=== PATIENT | male | born 2000 | race Caucasian/White ===

== ENCOUNTER 2020-08-08 12:20 | Emergency (ER) | payer OTHER ==
[2020-08-08] MEDS ORDERED: Ibuprofen 200 MG TAB ONE (14:06)
[2020-08-08] MEDS ORDERED: Cyclobenzaprine 10 MG TAB ONE (14:07)
[2020-08-09] MEDS ORDERED: Acetaminophen 500 MG TAB ONE (04:37)
[2020-08-09] MEDS ORDERED: Ibuprofen 200 MG TAB ONE (04:37)
== END 2020-08-08 14:21 | disposition home or self-care (01) ==
LOC: CSHERS 12:20
DX: M54.6 Pain in thoracic spine (principal); J45.909 Unspecified asthma, uncomplicated
CPT/HCPCS: 99283

== ENCOUNTER 2020-08-15 01:16 | Emergency (ER) | payer OTHER | END 2020-08-15 01:43 | disposition home or self-care (01) | LOC: CSHERS 01:16 | DX: M54.5 Low back pain (principal); R10.13 Epigastric pain; J45.909 Unspecified asthma, uncomplicated; Z79.51 Long term (current) use of inhaled steroids | CPT/HCPCS: 93005 ==

== ENCOUNTER 2020-08-18 15:04 | Emergency (ER) | payer OTHER ==
[2020-08-18] MEDS ORDERED: Ondansetron ODT 4 MG TAB ONE (17:33)
[2020-08-18] MEDS ORDERED: Dicyclomine 20 MG TAB ONE (17:35)
== END 2020-08-18 18:31 | disposition home or self-care (01) ==
LOC: CSHERS 15:04
DX: K29.70 Gastritis, unspecified, without bleeding (principal); S20.212A Contusion of left front wall of thorax, initial encounter; M94.0 Chondrocostal junction syndrome [Tietze]; J45.909 Unspecified asthma, uncomplicated; Z79.899 Other long term (current) drug therapy
CPT/HCPCS: 93005; Q0162

== ENCOUNTER 2020-08-20 15:11 | Emergency (ER) | payer OTHER ==
[2020-08-20] MEDS ORDERED: Lorazepam 2 MG/ML VIAL ONE (16:14)
[2020-08-20 16:17] LABS: #Basophils 0.1 10x3/uL (0.0-0.2); #Eosinphils 0.7 10x3/uL (0.0-0.5); #Monocytes 0.6 10x3/uL (0.0-1.1); #Neutrophils 5.6 10x3/uL (1.5-8.4); %Basophils 0.6 % (0.0-2.0); %Lymphocytes 21.2 % (18.0-47.0); %Monocytes 7.1 % (0.0-10.0); %Neutrophils 62.9 % (40.0-75.0); Mean Corpuscular HGB CONC 34.1 g/dL (32.0-36.0); Mean Corpuscular Hemoglobin 30.6 pg (27.0-33.0); Mean Corpuscular Volume 89.6 fl (81.2-95.1); Mean Platelet Volume 10.2 fl (7.4-10.4); Platelet Count 312 10x3/uL (150-450); RBC Distribution Width 11.9 % (11.5-14.5); Red Blood Cell (RBC) Count 5.56 10x6/uL (4.32-5.72); White Blood Cell (WBC) Count 8.9 10x3/uL (3.5-10.5)
[2020-08-20 17:53] LABS: ALT (SGPT) 32 U/L (8-55); AST (SGOT) 23 U/L (5-34); Albumin 4.4 g/dL (3.5-5.0); Alkaline Phosphatase 122 U/L (50-130); Anion Gap 16 mmol/L (10-20); BUN (Urea Nitrogen) 14 mg/dL (8.9-20.6); Bilirubin, Total 1.1 mg/dL (0.2-1.2); Calc. Creatinine Clearance 0 mL/min (70-130); Calcium 9.7 mg/dL (7.8-10.44); Carbon Dioxide 22 mmol/L (22-29); Chloride 102 mmol/L (98-107); Glucose 87 mg/dL (70-105); Potassium 4.2 mmol/L (3.5-5.1); Protein, Total 7.4 g/dL (6.0-8.3); Sodium 136 mmol/L (136-145)
== END 2020-08-20 18:44 | disposition home or self-care (01) ==
LOC: CSHERS 15:11
DX: F41.9 Anxiety disorder, unspecified (principal); R07.89 Other chest pain; J45.909 Unspecified asthma, uncomplicated
CPT/HCPCS: 71045; 80053; 84484; 85025; 93005; 96374; J2060

== ENCOUNTER 2021-04-26 03:54 | Emergency (ER) | payer OTHER ==
[2021-04-26] MEDS ORDERED: Dexamethasone 10 MG/ML VIAL ONE (04:31)
== END 2021-04-26 04:33 | disposition home or self-care (01) ==
LOC: CSHERS 03:54
DX: J45.901 Unspecified asthma with (acute) exacerbation (principal); Z79.899 Other long term (current) drug therapy
CPT/HCPCS: J1100

== ENCOUNTER 2021-04-26 11:11 | Emergency (ER) | payer OTHER ==
[2021-04-26] MEDS ORDERED: Lorazepam 1 MG TAB ONE (12:09)
[2021-04-26 23:08] LABS: SARS-CoV-2 PCR by NAA Not Detected (NotDetected)
== END 2021-04-26 13:40 | disposition home or self-care (01) ==
LOC: CSHERS 11:11
DX: J45.901 Unspecified asthma with (acute) exacerbation (principal); F41.9 Anxiety disorder, unspecified; Z20.822 Contact with and (suspected) exposure to COVID-19; Z79.899 Other long term (current) drug therapy
CPT/HCPCS: 71045; 87804; 93005; 93010; 99284; J1100; U0003; U0005

== ENCOUNTER 2021-10-03 11:27 | Emergency (ER) | payer OTHER | END 2021-10-03 12:47 | disposition home or self-care (01) | LOC: CSHERS 11:27 | DX: M62.830 Muscle spasm of back (principal); J45.909 Unspecified asthma, uncomplicated; Z79.51 Long term (current) use of inhaled steroids; X50.0XXA Overexertion from strenuous movement or load, initial encounter | CPT/HCPCS: 99283 ==

== ENCOUNTER 2021-10-05 10:53 | Emergency (ER) | payer OTHER | END 2021-10-05 14:55 | disposition home or self-care (01) | LOC: CSHERS 10:53 | DX: S39.012A Strain of muscle, fascia and tendon of lower back, initial encounter (principal); X50.9XXA Other and unspecified overexertion or strenuous movements or postures, initial encounter | CPT/HCPCS: 99283 ==

== ENCOUNTER 2021-12-28 15:19 | Emergency (ER) | payer OTHER | END 2021-12-28 16:15 | disposition home or self-care (01) | LOC: CSHERS 15:19 | DX: J45.901 Unspecified asthma with (acute) exacerbation (principal) | CPT/HCPCS: 99284 ==

== ENCOUNTER 2021-12-30 07:53 | Emergency (ER) | payer OTHER ==
[2021-12-30] MEDS ORDERED: Benzonatate 100 MG CAP ONE (08:49)
== END 2021-12-30 09:30 | disposition home or self-care (01) ==
LOC: CSHERS 07:53
DX: J01.90 Acute sinusitis, unspecified (principal); B96.89 Other specified bacterial agents as the cause of diseases classified elsewhere; J02.9 Acute pharyngitis, unspecified; Z20.822 Contact with and (suspected) exposure to COVID-19
CPT/HCPCS: 87081; 87430; 99283; U0003; U0005

== ENCOUNTER 2022-02-05 16:49 | Emergency (ER) | payer OTHER | END 2022-02-05 17:38 | disposition home or self-care (01) | LOC: CSHERS 16:49 | DX: B34.9 Viral infection, unspecified (principal) | CPT/HCPCS: 99283 ==

== ENCOUNTER 2022-03-11 09:50 | Emergency (ER) | payer OTHER | END 2022-03-11 11:05 | disposition home or self-care (01) | LOC: CSHERS 09:50 | DX: J10.1 Influenza due to other identified influenza virus with other respiratory manifestations (principal) | CPT/HCPCS: 87804; 99283 ==

== ENCOUNTER 2022-06-01 16:49 | Emergency (ER) | payer OTHER | END 2022-06-01 17:53 | disposition home or self-care (01) | LOC: CSHERS 16:49 | DX: M25.512 Pain in left shoulder (principal); R10.13 Epigastric pain; W51.XXXA Accidental striking against or bumped into by another person, initial encounter | CPT/HCPCS: 99283 ==

== ENCOUNTER 2022-07-15 04:31 | Emergency (ER) | payer OTHER | END 2022-07-15 05:17 | disposition home or self-care (01) | LOC: CSHERS 04:31 | DX: R55 Syncope and collapse (principal) | CPT/HCPCS: 93005 ==

== ENCOUNTER 2022-07-28 17:23 | Emergency (ER) | payer OTHER ==
[2022-07-28] MEDS ORDERED: Meclizine HCl 25 MG TAB ONE (18:48)
[2022-07-28 19:33] LABS: #Basophils 0.1 10x3/uL (0.0-0.2); #Eosinphils 0.7 10x3/uL (0.0-0.5); #Monocytes 0.8 10x3/uL (0.0-1.1); #Neutrophils 5.3 10x3/uL (1.5-8.4); %Basophils 0.6 % (0.0-2.0); %Monocytes 9.4 % (0.0-10.0); %Neutrophils 62.6 % (40.0-75.0); Hemoglobin 15.4 g/dL (13.5-17.5); Mean Corpuscular HGB CONC 34.7 g/dL (32.0-36.0); Mean Corpuscular Hemoglobin 30.1 pg (27.0-33.0); Mean Corpuscular Volume 86.9 fl (81.2-95.1); Mean Platelet Volume 9.6 fl (7.4-10.4); Platelet Count 257 10x3/uL (150-450); RBC Distribution Width 12.2 % (11.5-14.5); Red Blood Cell (RBC) Count 5.11 10x6/uL (4.32-5.72); White Blood Cell (WBC) Count 8.5 10x3/uL (3.5-10.5)
[2022-07-28 19:45] LABS: ALT (SGPT) 56 U/L (8-55); AST (SGOT) 26 U/L (5-34); Albumin 4.2 g/dL (3.5-5.0); Alkaline Phosphatase 100 U/L (40-110); Anion Gap 11 mmol/L (10-20); BUN (Urea Nitrogen) 18 mg/dL (8.9-20.6); Bilirubin, Total 0.4 mg/dL (0.2-1.2); Calc. Creatinine Clearance 0 mL/min (70-130); Calcium 9.3 mg/dL (7.8-10.44); Carbon Dioxide 25 mmol/L (22-29); Chloride 105 mmol/L (98-107); Estimated GFR 109; Glucose 96 mg/dL (70-105); Potassium 4.2 mmol/L (3.5-5.1); Protein, Total 7.2 g/dL (6.0-8.3); Sodium 137 mmol/L (136-145)
== END 2022-07-28 21:05 | disposition home or self-care (01) ==
LOC: CSHERS 17:23
DX: R42 Dizziness and giddiness (principal)
CPT/HCPCS: 36415; 80053; 83735; 85025; 93005

== ENCOUNTER 2023-01-12 09:14 | Emergency (ER) | payer OTHER, SELFPAY ==
[2023-01-12] MEDS ORDERED: Ipratropium/Albuterol 3 ML NEB ONE ×2 (09:51→11:06)
[2023-01-12] MEDS ORDERED: predniSONE 20 MG TAB ONE (10:01)
[2023-01-12 10:45] LABS: SARS-CoV-2 NAA Rapid Test Not Detected (NotDetected)
== END 2023-01-12 11:10 | disposition home or self-care (01) ==
LOC: CSHERS 09:14
DX: J45.901 Unspecified asthma with (acute) exacerbation (principal); Z20.822 Contact with and (suspected) exposure to COVID-19
CPT/HCPCS: 94640; 94760; J7512; J7620

== ENCOUNTER 2023-02-08 05:28 | Emergency (ER) | payer SELFPAY ==
[2023-02-08] MEDS ORDERED: Ipratropium/Albuterol 3 ML NEB ONE (05:46)
[2023-02-08] MEDS ORDERED: Dexamethasone 10 MG/ML VIAL ONE (06:02)
== END 2023-02-08 07:09 | disposition home or self-care (01) ==
LOC: CSHERS 05:28
DX: J45.901 Unspecified asthma with (acute) exacerbation (principal); J06.9 Acute upper respiratory infection, unspecified
CPT/HCPCS: 93005; 93010; 94640; 94664; 94760; J1100; J7611; J7620

== ENCOUNTER 2023-02-12 16:29 | Emergency (ER) | payer SELFPAY | END 2023-02-12 17:53 | disposition home or self-care (01) | LOC: CSHERS 16:29 | DX: R05.9 Cough, unspecified (principal) | CPT/HCPCS: 99283 ==

== ENCOUNTER 2023-04-03 12:14 | Emergency (ER) | payer SELFPAY ==
[2023-04-03] MEDS ORDERED: Acetaminophen 500 MG TAB ONE (12:57)
[2023-04-03 13:07] LABS: Bilirubin Neg (Negative); Blood, Urine Negative (Negative); Clarity Cloudy (Clear); Glucose, Urine (Dipstick) Normal (Negative); Ketone, Urine Negative (Negative); Leukocyte Negative (Negative); Nitrite Negative (Negative); Protein, Urine (Dipstick) 15 mg/dl (Neg-Trace); Specific Gravity, Urine 1.015 (1.005-1.030); Urobilinogen Normal mg/dL (Less than 2)
[2023-04-03 13:37] LABS: Bacteria/HPF None Seen HPF (None Seen); CAUTI Indications for Culture Dysuria,urgency,freq; RBC/HPF None Seen HPF (0-3); Squamous Epithelial None Seen HPF (0-3); Urine Culture Reflex No No; WBC/HPF None Seen HPF (0-3)
== END 2023-04-03 13:52 | disposition home or self-care (01) ==
LOC: CSHERS 12:14
DX: M54.50 Low back pain, unspecified (principal)
CPT/HCPCS: 81001; 99283

== ENCOUNTER 2023-11-21 12:53 | Emergency (ER) | payer SELFPAY | END 2023-11-21 13:32 | disposition home or self-care (01) | LOC: CSHERS 12:53 | DX: E86.0 Dehydration (principal); R42 Dizziness and giddiness; Z55.6 Problems related to health literacy | CPT/HCPCS: 93005 ==